=== PATIENT | female | born 1960 | race Two or more races ===

== ENCOUNTER 2016-04-28 13:44 | Observation (INO) | payer OTHER ==
[2016-04-28] MEDS ORDERED: IOPAMIDOL 370 (76%) 100 ML VIAL IV ONE (13:45)
[2016-04-28 14:12] LABS: INR 0.96; PARTIAL THROMBOPLASTIN TIME 23.6 SECONDS (24.5-33.0); PROTHROMBIN TIME 10.1 SECONDS (9.3-11.4)
[2016-04-28 14:14] LABS: ALB/GLOB RATIO 1.4 (>1.0); ALBUMIN 4.6 gm/dL (3.5-5.7); CALCIUM 9.8 mg/dL (8.6-10.3)
[2016-04-28 14:25] LABS: ABSOLUTE NEUTROPHIL COUNT 6.2 K/mm3 (1.8-7.7); BASO # 0.1 K/mm3 (0.0-0.2); BASO % 0.8 % (0.2-1.0); EOS # 0.1 (0.0-0.5); EOS % 1.4 % (0.9-2.9); HEMATOCRIT 38.9 % (37.0-47.0); HEMOGLOBIN 12.5 gm/l (12.0-16.0); IMM NEUT # 0.1 K/mm3 (0-0.2); IMM NEUT% 0.6 % (0-1); LYMPH # 1.9 (1.0-4.8); LYMPH % 20.5 % (15-45); MEAN CELL VOLUME 90.3 fl (81.0-99.0); MEAN CORPUSCULAR HGB CONC 32.1 g/dl (33.0-37.0); MEAN PLATELET VOLUME 10.3 fl (7.4-10.4); MONO # 0.7 (0.0-0.8); MONO % 8.1 % (4-12); NEUT % 68.6 % (43-75); PLATELET COUNT 370 K/mm3 (130-400); RED CELL DISTRIBUTION WIDTH 14.6 % (11.5-14.5)
[2016-04-28] MEDS ORDERED: LABETALOL HCL 5 MG/ML 20ML VIAL IV ONE (14:32)
--- NOTE | 2016-04-28 14:34 | CT ---
HEAD W/O CON COMPARISON: None HISTORY: 55-year-old female was undergoing Lexiscan stress testing with Dr. Bailey, when she developed severe hypertension, left parasternal chest pain, and severe left temporal headache. Associated lightheadedness, diaphoresis, and nausea. Altered mental status and confusion. TECHNIQUE: Using a [employer] Aquilion [address] scanner, images were obtained through the head. An automated dose reduction technique was used to minimize patient radiation dose. DOSE INFORMATION: DLP(mGycm): 623.70 FINDINGS: Mass: None Intracranial Hemorrhage: None Acute Infarction: None Cerebral hemispheres: Normal Basal ganglia: Normal Thalami: Normal Brainstem: Normal Cerebellum: Normal Ventricles: Normal Basilar cisterns: Normal Corpus callosum: Normal Pituitary fossa: Normal Middle ears and mastoid air cells: Normal Orbits and sinuses: Normal Skull and scalp: Normal Dural sinuses and vessels: Normal IMPRESSION: Normal study. No intracranial hemorrhage or cerebral edema. The results were discussed with Neto Bridges M.D. 04/28/2016 at 14:15
--- NOTE | 2016-04-28 14:37 | CT ---
CTA HEAD W/ POST PROCESS 05/04/2016 at 13:57 COMPARISON: CT head without contrast, 04/28/2016 at 13:56 HISTORY: 55-year-old female was undergoing Lexiscan stress testing with Dr. Bailey, when she developed severe hypertension, left parasternal chest pain, gazing to the left, and severe left temporal headache. Associated lightheadedness, diaphoresis, and nausea. Altered mental status and confusion. TECHNIQUE: [employer] Aquilion [address] scanner. Unenhanced images obtained through the head. Intravenous injection 80 mL Isovue-370. Contrast-enhanced images obtained. Under concurrent supervision and interpretation, requiring a separate 3-D workstation, the learning technologist created 3-D CT angiograms. An automated dose reduction technique was used to minimize patient radiation dose. Dose information (combined with CTA neck, chest, abdomen, and pelvis): DLP(mGycm): 3081.10 FINDINGS: 3-D CT angiogram findings: No vessel occlusion. Normal [place]. No arteriovenous malformation. No aneurysm. IMPRESSION: Normal CT angiogram of the head. The results were discussed with Neto Bridges M.D. 04/28/2016 at 14:15
--- NOTE | 2016-04-28 15:03 | CT ---
CTA CHEST FOR DISSECTION COMPARISON: None. HISTORY: 55-year-old female was undergoing Lexiscan stress testing with Dr. Bailey, when she developed severe hypertension, left parasternal chest pain, and severe left temporal headache. Associated lightheadedness, diaphoresis, and nausea. Altered mental status and confusion. TECHNIQUE: [employer] Aquilion [address] scanner. Intravenous injection 80 mL Isovue-370. Contrast-enhanced images obtained from the aortic arch to the skull base. Under concurrent supervision and interpretation, requiring a separate 3-D workstation, the angio technologist created 3-D CT angiograms. An automated dose reduction technique was used to minimize patient radiation dose. Dose information (combine with CTA head, chest, abdomen, and pelvis): DLP(mGycm): 3081.10 FINDINGS: Aortic arch: Normal. Brachiocephalic artery: Normal. Right common carotid artery: Normal. Right internal carotid artery: Normal. Right external carotid artery: Normal. Right vertebral artery: Normal. Right subclavian artery: Normal. Left subclavian artery: Normal. Left common carotid artery: Normal. Left internal carotid artery: Minimal plaque at the origin. No stenosis. Left external carotid artery: Normal. Left vertebral artery: Normal. Internal jugular veins: Normal. Airway: Normal Lymph nodes: Normal Salivary glands: Normal Thyroid gland: Normal. Muscles: Normal. Spine: The atlantodental interval severe osteoarthritis. C7-T1 facet osteoarthritis. Superior mediastinum: Normal Lung apices: Normal. IMPRESSION: 1. Minimal atherosclerotic calcified plaque at the origin of the left internal carotid artery. No stenosis. No thromboembolism. Normal vertebral arteries. 2. Incidental findings include atlantodental interval severe osteoarthritis and C7-T1 mild facet osteoarthritis. The results were discussed with Levi Bridges M.D. 04/28/2016 at 14:15
--- NOTE | 2016-04-28 15:20 | CT ---
CTA CHEST ABD PELVIS W/ POST PROCESS COMPARISON: None. HISTORY: 55-year-old female was undergoing Lexiscan stress testing with Dr. Bailey, when she developed severe hypertension, left parasternal chest pain, and severe left temporal headache. Associated lightheadedness, diaphoresis, and nausea. Altered mental status and confusion. TECHNIQUE: [employer] Aquilion [address] scanner. Intravenous injection 80 mL Isovue-370. Contrast-enhanced images obtained through the thorax, abdomen, and pelvis. Under concurrent supervision and interpretation, requiring a separate 3-D workstation, the cardiac catheterization technologist created 3-D CT angiograms. An automated dose reduction technique was used to minimize patient radiation dose. Dose information (combine with CTA head and neck): DLP(mGycm): 3081.10 FINDINGS (CTA CHEST): Pulmonary arteries and veins: Suboptimal contrast opacification. No large pulmonary embolism. Aorta: Normal Heart and coronary arteries: Normal heart size. Minimal aortic annular calcification. Lungs: Normal. Trachea and bronchi: Normal. Mediastinum and anderson: Normal. Pleura and pericardium: Normal. Chest wall: Normal. Spine: Mild dextroscoliosis. Mild to moderate spondylosis. 3-D CT angiogram: Normal. FINDINGS (CTA ABDOMEN AND PELVIS): 3-D CT angiogram: Normal. Liver: Normal. Gallbladder: Removed. Bile ducts: Normal. Pancreas: Normal. Spleen: Normal. Adrenal glands: Normal. Kidneys: Normal. Ureters: Normal. Urinary bladder: Normal. Uterus and adnexa:: Normal Blood vessels: Normal. Lymph nodes: Normal. Stomach: Viri fundoplication. Duodenum: Normal. Small intestine: Normal. Appendix: Normal. Colon: Normal. Abdominal wall and supporting musculature: Normal. Bones: Normal. IMPRESSION: 1. Normal CT pulmonary angiogram. 2. Normal CT angiogram of the aorta in the thorax, abdomen, and pelvis. 3. No acute finding. Incidental findings include minimal aortic annular calcification, Viri fundoplication, cholecystectomy, thoracic spine dextroscoliosis and mild to moderate spondylosis. The results were discussed with Neto Bridges M.D. 04/28/1713: 15
[2016-04-28 16:01] VITALS: BMI 30.6
[2016-04-28] MEDS ORDERED: MAGNESIUM HYDROXIDE 30 ML UDCUP PO PRN (19:28)
[2016-04-28] MEDS ORDERED: BISACODYL 5 MG TABLET.EC PO PRN (19:28)
[2016-04-28] MEDS ORDERED: BLISTEX LIPSTICK 1 EACH TP PRN (19:28)
[2016-04-28] MEDS ORDERED: BISACODYL 10 MG SUP PR PRN (19:28)
[2016-04-28] MEDS ORDERED: SODIUM CHLORIDE 0.9% 100 ML IV PRN (19:28)
[2016-04-28] MEDS ORDERED: ACETAMINOPHEN 325 MG TABLET PO PRN (19:28)
[2016-04-28] MEDS ORDERED: MENTHOL/CETYLPYRD 1 EACH LOZENGE PO PRN (19:28)
[2016-04-28] MEDS ORDERED: ZOLPIDEM TARTRATE 5 MG TABLET PO PRN (19:29)
[2016-04-28] MEDS: HYDROCHLOROTHIAZIDE 25 MG TABLET PO SCH (20:15)
--- NOTE | 2016-04-28 20:35 | HP ---
JOJASMINA DE LEON DATE OF ADMISSION: April 28, 2016 CHIEF COMPLAINT: Hypertensive urgency. HISTORY OF PRESENT ILLNESS: Jasmina is a 55-year-old female that presented to our hospital for an outpatient Lexiscan Myoview due to some atypical chest pain. She does have a history of anxiety and hypertension but really no other significant history. During the Lexiscan portion of the study, in recovery she developed significant elevation of blood pressure up into the 220s/110s. This was accompanied initially by a headache followed by chest pain followed by confusion and shaking. She was immediately transported to the emergency room for further evaluation. In the emergency room she initially seemed to have a bit of a facial droop and a left arm drift so stroke protocol was initiated promptly. She underwent a full workup including head and neck CT angiogram, brain CT, chest and thorax CT angiogram as well as consult with the stroke physician. Throughout this time she did seem to have a significant hypertension and the above workup was negative. It was felt that she actually was suffering from hypertensive encephalopathy. She was treated in the emergency room with labetalol with prompt resolution of her symptoms with her blood pressure being markedly improved down into the 150s/80s. It was elected thereafter to refer her to observation on the hospitalist service. REVIEW OF SYSTEMS: Other than above, she has had no recent headaches, no visual symptoms or difficulty swallowing. She has had some atypical type burning chest pain in the last few weeks which is what prompted her Lexiscan in the first place. No shortness of breath. No nausea, vomiting, diarrhea. No lower extremity weakness, numbness, tingling or swelling other than that noted above. She does have significant anxiety and posttraumatic stress disorder and has been having increasing nightmares and anxiety over the last several weeks. Review of systems is otherwise negative. PAST MEDICAL HISTORY: 1. Hypertension. 2. Anxiety/posttraumatic stress disorder. 3. Diabetes mellitus type 2. 4. Fibromyalgia. PAST SURGICAL HISTORY: 1. Hiatal hernia surgery. 2. Umbilical hernia surgery times two. 3. Toe surgery. 4. Bilateral tubal ligation. 5. Cholecystectomy. ALLERGIES: 1. PENICILLIN. 2. CODEINE. CURRENT MEDICATIONS: 1. Losartan 100 mg orally daily. 2. Lantus 30 units subcutaneous at bedtime. 3. Glucotrol 5 mg orally twice daily. 4. Hydrochlorothiazide 25 mg orally daily. 5. Famotidine 20 mg orally at bedtime. 6. Cymbalta 90 mg orally daily (60 mg tablet plus 30 mg tablet). 7. Metformin 1000 mg orally twice daily. 8. Prazosin 1 mg orally at bedtime just started within the last week or so in order to treat nightmares. 9. Note she did not take her blood pressure medications this morning prior to her test. SOCIAL HISTORY: She lives in [place] with her . No alcohol, tobacco or drug use. She is retired from administrative type work. FAMILY HISTORY: Is significant for multiple members on both sides with diabetes, coronary artery disease, and cardiovascular disease. PHYSICAL EXAMINATION: VITAL SIGNS: At the time I examine her after being worked up in the emergency room and treated, temperature of 98.4, pulse of 81, blood pressure 156/82, respirations 12 and unlabored, O2 saturation 95% on room air. GENERAL: This is a well-developed, well-nourished middle age female. She is now calm and in no distress. Smiling, speaking in full sentences. HEENT: Normocephalic, atraumatic. Tympanic membranes are clear. Extraocular muscles are intact. Pupils equal, round and reactive to light. Oropharynx oral mucosa is moist with no lesion. Gag reflex is intact. NECK: Is supple with no jugular venous distention, no bruits. LUNGS: Clear with no wheezes, rales or rhonchi. HEART: Regular rhythm with no murmurs, rubs or gallops. ABDOMEN: Is soft, nontender, nondistended, no rebound or guarding. EXTREMITIES: With no edema. NEUROLOGIC: Exam is completely nonfocal at this point. She has 5/5 strength in all extremities. Deep tendon reflexes are 1+ and symmetrical bilaterally, biceps and brachialis, patella and ankle. There are no sensory deficits noted. Finger to nose test is negative. LABORATORIES: CBC with a white count of 9.0, hemoglobin 12.5, hematocrit 38.9, platelets of 370. Chemistry panel, sodium 139, potassium 3.7, chloride 97, carbon dioxide 31, BUN of 8, creatinine 0.5, glucose of 142, calcium 9.8, total bilirubin 0.5, AST 22, ALT 24, alkaline phosphatase of 81, INR of 0.96. IMAGIN. Noncontrast head CT with no acute findings. No hemorrhage and no edema. 2. Head and neck CT angiogram both normal. 3. Chest/thorax CT angiogram showing minimal atherosclerotic plaques at the left internal carotid artery but no other significant abnormalities. ASSESSMENT: 1. Hypertensive urgency with transient hypertensive encephalopathy now resolved. Etiology is apparently the Lexiscan Myoview in the context of not having taken her regular blood pressure medications. 2. Anxiety and posttraumatic stress disorder exacerbating above. 3. Atypical chest pain over the last several weeks. None at this point. Lexiscan Myoview was completed and was in fact negative for reversible ischemia. 4. Diabetes mellitus type 2. PLAN: At this point she seems to be completely resolved. We will go ahead and refer her to observation overnight. We will recheck lab work in the morning. I am going to resume her usual antihypertensive medications and will supplement as needed. In the morning we will recheck lab work and reevaluate. I anticipate we will be able to discharge her to home tomorrow. Supportive care otherwise. Deep venous thrombosis prophylaxis is not indicated as the patient is anticipated to be in the hospital less than 24 hours. Cc: Parker Celeste M.D.
[2016-04-28] MEDS ORDERED: INSULIN GLARGINE (DOSE) 100 UNITS/ML UNIT SUB-Q SCH (21:00)
[2016-04-28] MEDS ORDERED: FAMOTIDINE 20 MG TABLET PO SCH (21:00)
[2016-04-28] MEDS: LOSARTAN POTASSIUM 50 MG TABLET PO SCH (21:03)
[2016-04-28] MEDS ORDERED: INSULIN ASPART (DOSE) 100 UNITS/1 ML SUB-Q PRN (21:11)
[2016-04-29 06:01] LABS: HEMATOCRIT 36.4 % (37.0-47.0); HEMOGLOBIN 11.4 gm/l (12.0-16.0); MEAN CELL VOLUME 92.4 fl (81.0-99.0); MEAN CORPUSCULAR HEMOGLOBIN 28.9 pg (27.0-31.0); MEAN CORPUSCULAR HGB CONC 31.3 g/dl (33.0-37.0); RED CELL DISTRIBUTION WIDTH 14.9 % (11.5-14.5)
[2016-04-29 06:28] LABS: ALB/GLOB RATIO 1.4 (>1.0); ALBUMIN 4.2 gm/dL (3.5-5.7); CALCIUM 9.3 mg/dL (8.6-10.3)
[2016-04-29] MEDS ORDERED: GLIPIZIDE 5 MG TABLET PO SCH (07:00)
[2016-04-29 07:31] VITALS: BP 101/69
--- NOTE | 2016-04-29 08:38 | DS ---
Jackie Felix ADMIT DATE: 04/28/2016 DISCHARGE DATE: 04/29/2016 ADMIT DIAGNOSES: 1. Hypertensive urgency/hypertensive encephalopathy. 2. Anxiety with posttraumatic stress disorder exacerbating the above. 3. Atypical chest pain with partially completed Lexiscan myoview performed prior to admission. 4. Chronic diabetes mellitus type 2. DISCHARGE DIAGNOSES: 1. Hypertensive urgency/hypertensive encephalopathy. 2. Anxiety with posttraumatic stress disorder exacerbating the above. 3. Atypical chest pain with partially completed Lexiscan myoview performed prior to admission. 4. Chronic diabetes mellitus type 2. 5. All blood pressures and symptoms resolved at time of admission. PROCEDURES: Lexiscan myoview, this was initiated prior to admission and was completed after her admission and was negative for ischemia with a normal ejection fraction. ADMIT HISTORY AND PHYSICAL: Please see my dictated note for details. Briefly, Ms. Felix is a 55-year-old female who actually presented for an outpatient Lexiscan the day of admission. She underwent the first part of the test without complication. During the Lexiscan portion of the test she did well up until recovery at which point she developed marked elevation in blood pressure followed by severe headache and chest pain. She was transported to the emergency room immediately. In the emergency room she actually developed some shakiness and possibly facial droop and a left arm drift. There was a concern about a possible stroke, so a stroke code was called. She underwent extensive workup including non-contrast head CT, head and neck CT angiogram, as well as a chest and thorax CT angiogram all of which were negative. The stroke neurologist was consulted via robot and it was felt that she was not having an acute stroke, but instead was having most likely having hypertensive encephalopathy. She was treated in the emergency room with labetalol with a marked improvement in her symptoms and a drop in her blood pressure. She was subsequently admitted to the hospitalist service for further observation. HOSPITAL COURSE: She was admitted to [facility]. She was completely stable and asymptomatic at time of admission. We did complete the final images on her Lexiscan after admission and these came back with negative findings as noted above. We resumed her usual antihypertensive medications. She remained stable overnight with no symptoms what so ever and blood pressures remaining well controlled. On the morning of discharge she was feeling well and very anxious to go home. We have elected to discharge her home with plans for close outpatient follow up. DISCHARGE MEDICATIONS: As prior to admit as follows: 1. Cymbalta a total of 90 mg by mouth daily (60 mg tablet plus 30 mg tablet). 2. Pepcid 20 mg by mouth at bedtime. 3. Glucotrol 5 mg by mouth twice daily. 4. Hydrochlorothiazide 25 mg by mouth daily. 5. Lantus 3 units subcutaneously daily. 6. Losartan 100 mg by mouth daily. 7. Metformin 1000 mg by mouth twice daily. 8. Prazosin 1 mg by mouth at bedtime. DISCHARGE FOLLOW UP: Will be in the next week or so with her regular physician, Dr. Lopez. JOB: [id number] CC: Dr. Lopez
[2016-04-29] MEDS ORDERED: DULOXETINE HCL 30 MG CAPSULE.DR PO SCH (09:00)
[2016-04-29] MEDS ORDERED: DULOXETINE HCL 60 MG CAP PO SCH (09:00)
[2016-04-29] MEDS: HYDROCHLOROTHIAZIDE 25 MG TABLET PO SCH (09:03)
[2016-04-29] MEDS: LOSARTAN POTASSIUM 50 MG TABLET PO SCH (09:03)
== END 2016-04-29 09:25 | disposition home or self-care (01) ==
LOC: ED 13:44 → ICU 14:56
PROVIDERS: ADMIT Family Medicine; ATTEND Family Medicine
DX: I67.4 Hypertensive encephalopathy (principal); I65.22 Occlusion and stenosis of left carotid artery; M47.9 Spondylosis, unspecified; F41.9 Anxiety disorder, unspecified; F43.10 Post-traumatic stress disorder, unspecified; E11.9 Type 2 diabetes mellitus without complications; M79.7 Fibromyalgia; I16.0 Hypertensive urgency; Z79.84 Long term (current) use of oral hypoglycemic drugs; R07.9 Chest pain, unspecified
CPT/HCPCS: 85027; 85025; 80053 ×2; 85730; 85610; 84484; 36415; 78452; 71275; 70450; 70496; 70498; 99285 ×2; 96374; 82962; 93017; 93005; 96372; A9270 ×9; J2785; Q9967; J1815 ×2; A9500; G0378 ×2